=== PATIENT | female | born 1955 | race Two or more races ===

== ENCOUNTER → 2017-10-12 | Outpatient (CLI) | payer OTHER ==
--- NOTE | 2017-10-12 13:09 | KCIC ---
Bilateral digital screening mammograms: Reason for examination: Routine screening. No previous examinations are available for comparison. Interpretation was made with the benefit of CAD. The skin and nipples show no abnormalities. No abnormal axillary lymph nodes are seen. The breast parenchyma shows scattered fibroglandular density. (Breast density: Category B.) There are no dominant masses, suspicious calcifications or architectural distortions. Some benign calcifications are present. Impression: No evidence of malignancy. Recommend routine screening. BI-RADS category 2: Benign "Our facility is accredited by the [employer] Mammography [employer]." This patient's information has been entered into a reminder system for the patient to be notified with the results of her examination and a target date for the next mammogram. Electronically signed by: Alba Snyder MD (10/12/2017 1:06 PM) [id number]
--- NOTE | 2017-10-12 13:44 | KCIC ---
Bone Densitometry History: Postmenopausal female. Findings: Bone Densitometry was performed with dual photon absorption of the lumbar spine and proximal femurs. Lumbar Spine: Bone density is 0.805 g/cm2 for L1-L4. T-score is -2.2. Z-score is -0.8. Left total femur: Bone density is 0.895 g/cm2. T-score is -0.4. Z-score is 0.6. IMPRESSION: There is osteopenia of the lumbar spine and normal bone mineral density of the left femur. World Health Organization definition of osteoporosis and osteopenia for women: normal equals T score at or above -1.0 standard deviations; osteopenia equals T score between -1.0 and -2.5 standard deviations; osteoporosis equals T score at or below -2.5 standard deviations. Electronically signed by: Reji Prieto MD (10/12/2017 1:41 PM) [id number]
== END | disposition home or self-care (01) ==
LOC: KCIC MAMMO 10:41
PROVIDERS: ATTEND Obstetrics & Gynecology
DX: Z12.31 Encounter for screening mammogram for malignant neoplasm of breast (principal); Z78.0 Asymptomatic menopausal state
CPT/HCPCS: 77080; G0202; 77067